=== PATIENT | male | born 1960 | race Caucasian/White ===

== ENCOUNTER → 2018-06-16 | Outpatient (CLI) | payer SELFPAY ==
[~2018-06-16] MED LIST: ASPIRIN ADULT L81 M2 PO; ATORVASTATIN CA40 M1 PO; MOTRIN800 MG PO; NKHM; PERCOCET 325 MG1 TA2 PO; PREDNISONE10 MG PO; TAMIFLU 75MG CA75 MG PO; VIBRAMYCIN100 MG PO; VITAMIN D50000 UNIT PO
[2018-06-16 12:05] LABS: IRON 111 ug/dL (65-175); TOTAL IRON BINDING CAPACITY 255 ug/dl (250-450)
== END | disposition home or self-care (01) ==
LOC: RESCLI 00:06
PROVIDERS: Student in an Organized Health Care Education/Training Program
DX: J44.9 Chronic obstructive pulmonary disease, unspecified (principal); E55.9 Vitamin D deficiency, unspecified; D64.9 Anemia, unspecified; R73.03 Prediabetes; Z76.89 Persons encountering health services in other specified circumstances; Z72.0 Tobacco use; Z71.6 Tobacco abuse counseling

== ENCOUNTER 2019-09-04 09:00 | Inpatient (IN) | payer SELFPAY ==
[~2019-09-04] VITALS: Ht 157.4 cm; Wt 56.2 kg
[2019-09-04 09:12] VITALS: BP 108/63
[2019-09-04 09:23] LABS: BASO # 0.1 10*3/uL (0.0-0.1); BASO % 1.3 % (0.0-1.0); EOS # 0.1 10*3/uL (0.0-0.4); EOS % 1.3 % (1.0-4.0); HEMATOCRIT 41.8 % (42.0-52.0); LYMPH # 1.1 10*3/uL (1.3-4.4); LYMPH % 22.1 % (27.0-41.0); MEAN CORPUSCULAR HGB 33.9 pg (27.0-31.0); MEAN CORPUSCULAR HGB CONC 33.3 g/dl (33.0-37.0); MEAN PLATELET VOLUME 8.8 fl (9.6-12.3); MONO # 0.4 10*3/uL (0.1-1.0); MONO % 8.6 % (3.0-9.0); NEUT # 3.2 10*3/uL (2.3-7.9); NEUT % 66.3 % (47.0-73.0); PLATELET COUNT AUTOMATED 182 10*3/uL (130-400); RED CELL DISTRI WIDTH 12.9 % (0-14.5); WHITE BLOOD COUNT 4.8 10*3/uL (4.8-10.8)
[2019-09-04 09:34] LABS: ACT PARTIAL THROMBO TIME 27.9 SECONDS (20.0-32.1)
[2019-09-04 10:07] LABS: ALBUMIN 3.5 gm/dl (3.1-4.5); ALKALINE PHOSPHATASE 92 U/L (45-117); BUN 13 mg/dl (7-24); CHLORIDE 109 mmol/L (98-107); POTASSIUM 4.5 mmol/L (3.5-5.1); SGOT/AST 42 IU/L (3-35); SGPT/ALT 33 U/L (12-78); SODIUM 139 mmol/L (136-145); TOTAL PROTEIN 6.5 gm/dL (6.4-8.2)
[2019-09-04 10:10] LABS: TROPONIN I < 0.015 ng/ml (<0.045)
--- NOTE | 2019-09-04 11:21 | NUR ---
faxed sbar to [facility]
--- NOTE | 2019-09-04 11:22 | NUR ---
REPORTED NURSE TO NURSE DANIELLE AQUINO
[2019-09-04 11:36] VITALS: BP 109/61
--- NOTE | 2019-09-04 11:40 | NUR ---
CCA 59, admitted to , under the services of SHARMAINE Palacios DO with a diagnosis of CHEST PAIN. Chief complaint is CHEST PAIN. Patient arrived via bed from ER. Monitor applied. Initial assessment completed. Vital signs taken and recorded. SHARMAINE PALACIOS DO notified of admission to the unit. Orders received. See assessment for past medical history, medications and allergies. Patient and/or family oriented to unit. [address] visitation policy reviewed. Clothing/patient valuable form completed. DANIELLE ERWIN
--- NOTE | 2019-09-04 11:51 | NUR ---
NO HOME MEDS PER PT.
--- NOTE | 2019-09-04 11:56 | NUR ---
'S OFFICE NOTIFIED OF CONSULT.
--- NOTE | 2019-09-04 12:00 | NUR ---
U NOTIFIED OF CONSULT.
--- NOTE | 2019-09-04 15:37 | NUR ---
PT RESTING, NO VOICED COMPLAINTS. RESPIRATIONS EASY, REGULAR. WILL MONITOR. CALL LIGHT WITHIN REACH.
[2019-09-04 16:00] VITALS: BP 112/62
--- NOTE | 2019-09-04 17:37 | NUR ---
PT REQUESTED IV ZOFRAN PER PRN ORDER FOR C/O NAUSEA/VOMITING. WILL MONITOR EFFECTIVENESS. CALL LIGHT WITHIN REACH. PT DENIES ANY CHEST PAIN.
--- NOTE | 2019-09-04 18:37 | NUR ---
ZOFRAN EFFECTIVE PER PT. WILL CONTINUE TO MONITOR.
[2019-09-04 20:00] VITALS: BP 109/62
--- NOTE | 2019-09-04 23:32 | NUR ---
NITROPASTE APPLIED TO LT SHOULDER PER ORDERS. PATIENT HAS NO COMPLAINTS AT THIS TIME. RESPS EASY AND REGULAR ON ROOM AIR, HR 60'S.
[2019-09-05] VITALS: BP 107/58
--- NOTE | 2019-09-05 03:14 | NUR ---
PT SLEEPING; NO S/S DISTRESS. EASY REGULAR RESPS ON ROOM AIR . CALL LIGHT IN REACH.
[2019-09-05 05:30] VITALS: BP 107/59
[2019-09-05 06:23] LABS: BASO # 0.1 10*3/uL (0.0-0.1); BASO % 0.9 % (0.0-1.0); EOS # 0.1 10*3/uL (0.0-0.4); EOS % 1.8 % (1.0-4.0); HEMATOCRIT 43.3 % (42.0-52.0); LYMPH # 1.4 10*3/uL (1.3-4.4); LYMPH % 24.2 % (27.0-41.0); MEAN CELL VOLUME 101.2 fl (80.0-94.0); MEAN CORPUSCULAR HGB 34.1 pg (27.0-31.0); MEAN CORPUSCULAR HGB CONC 33.7 g/dl (33.0-37.0); MEAN PLATELET VOLUME 9.5 fl (9.6-12.3); MONO # 0.4 10*3/uL (0.1-1.0); MONO % 7.9 % (3.0-9.0); NEUT # 3.6 10*3/uL (2.3-7.9); NEUT % 64.8 % (47.0-73.0); PLATELET COUNT AUTOMATED 200 10*3/uL (130-400); RED BLOOD COUNT 4.28 10*6/uL (4.50-5.90); WHITE BLOOD COUNT 5.6 10*3/uL (4.8-10.8)
[2019-09-05 06:57] LABS: ALBUMIN 3.4 gm/dl (3.1-4.5); ALKALINE PHOSPHATASE 57 U/L (45-117); BUN 12 mg/dl (7-24); CHLORIDE 109 mmol/L (98-107); CHOLESTEROL 159 mg/dL (<200); CREATININE 0.91 mg/dL (0.70-1.30); FREE T4 1.24 ng/dl (0.76-1.46); HDL CHOLESTEROL 48 mg/dl (40-60); LDL CHOLESTEROL 95 mg/dL (9-159); POTASSIUM 4.3 mmol/L (3.5-5.1); SGOT/AST 35 IU/L (3-35); SGPT/ALT 31 U/L (12-78); SODIUM 139 mmol/L (136-145); TOTAL PROTEIN 6.4 gm/dL (6.4-8.2); TRIGLYCERIDES 80 mg/dl (<150); VLDL CHOLESTEROL 16 mg/dL (6-40)
[2019-09-05 07:40] LABS: VITAMIN D, 25-HYDROXY 33.7 ng/mL (30-100)
[2019-09-05 08:00] VITALS: BP 98/54
--- NOTE | 2019-09-05 08:09 | NUR ---
JAYLEN IN TO SEE PATIENT REGARDING BHU CONSULT.
--- NOTE | 2019-09-05 08:49 | NUR ---
AUTHORIZATION OBTAINED AND FAXED FOR RECORDS FROM [facility].
--- NOTE | 2019-09-05 08:50 | NUR ---
PT MEDICATED WITH PO TYLENOL PER PRN ORDER FOR C/O HEADACHE. WILL MONITOR EFFECTIVENESS.
--- NOTE | 2019-09-05 09:50 | NUR ---
TYLENOL EFFECTIVE PER PT. WILL CONTINUE TO MONITOR.
[2019-09-05 12:00] VITALS: BP 100/62
[2019-09-05 16:00] VITALS: BP 98/58
--- NOTE | 2019-09-05 16:30 | NUR ---
PATIENT RESTING IN BED, WATCHING TV. NO VOICED COMPLAINTS. RESPIRATIONS EASY, REGULAR ON RA. WILL CONTINUE TO MONITOR. CALL LIGHT WITHIN REACH.
[2019-09-05 20:00] VITALS: BP 107/68
--- NOTE | 2019-09-05 21:06 | NUR ---
SCHEDULED MEDICATIONS GIVEN PER ORDER. PT DENIES ANY OTHER NEEDS AT THIS TIME. DENIES ANY S/S OF CHEST PAIN/PRESSURE. WILL MONITOR. CALL LIGHT LEFT IN REACH. SKIN NOT ASSESSED DUE TO PT WEARING JEANS. PT DOES NOT WANT TO REMOVE JEANS AT THIS TIME. PAJAMA PANTS OFFERED, BUT PT REFUSING.
--- NOTE | 2019-09-05 23:21 | NUR ---
NITRO PATCH APPLIED TO L POST SHOULDER. OLD PATCH REMOVED.
--- NOTE | 2019-09-05 23:26 | NUR ---
NOTIFIED OF PATIENT'S REQUEST FOR SOMETHING TO HELP HIM SLEEP. AWARE REMERON AND VISTARIL GIVEN EARLIER ORDERED AND INEFFECTIVE FOR SLEEP. DISCUSSED BP BEING 90S/50S THROUGHOUT THE DAY. NEW ORDER RECEIVED FOR PO RESTORIL X1 DOSE NOW.
--- NOTE | 2019-09-05 23:51 | NUR ---
PO RESTORIL ADMINISTERED PER ONE TIME ORDER FOR C/O INSOMNIA. WILL MONITOR EFFECTIVENESS. CALL LIGHT IN REACH.
[2019-09-06] VITALS: BP 102/62
--- NOTE | 2019-09-06 00:45 | NUR ---
EARLIER MEDICATION APPEARS EFFECTIVE. PT ASLEEP IN BED. NO S/S OF DISTRESS NOTED. WILL MONITOR. CALL LIGHT IN REACH.
--- NOTE | 2019-09-06 01:56 | NUR ---
PT ASLEEP IN BED. NO S/S OF DISTRESS NOTED. WILL MONITOR. CALL LIGHT IN REACH.
[2019-09-06 08:00] VITALS: BP 112/62
[2019-09-06 08:10] VITALS: BP 116/60
--- NOTE | 2019-09-06 08:20 | NUR ---
Shift chart check completed.
--- NOTE | 2019-09-06 09:38 | NUR ---
SENT TO CARDIAC TESTING
--- NOTE | 2019-09-06 09:40 | NUR ---
VISITOR/DAUGHTER HERE.
--- NOTE | 2019-09-06 10:25 | NUR ---
INFORMED CONSENT SIGNED FOR LEXISCAN STRESS TEST WITH DR. RUBIO. RESTING EKG SINUS BRADYCARDIA, HR 53, BP 118/60. PULSE OX 98% AND LUNGS SOUNDS CLEAR BILATERALLY BUT DEMINISHED. COMPLETED ONE MINUTE OF LEXISCAN PROTOCOL RECEIVING LEXISCAN 0.4MG OER 10 SECONDS. NO ARRHYTHMIAS NOTED AND NO NEW ST CHANGES. PT C/O ODD FEELING. LAST RECOVERY HR 87, BP 100/56. WAITING NUCLEAR SCANNING IN STABLE CONDITION.
--- NOTE | 2019-09-06 11:44 | NUR ---
RETURN FROM CARDIAC TESTING
--- NOTE | 2019-09-06 13:27 | NUR ---
Tube Wrapper in to talk to patient. Patient states lives at HOME with . There are FEW steps in the home. Physician: NONE AT THIS TIME Pharmacy: [facility], TAKES NO DAILY MEDS Home health services: NONE Patient's level of ADLs: INDEPENDENT Patient has working utilities: YES DME: NONE Follow-up physician's appointment after d/c: WILL GET ONE AND MAKE APPOINTMENT AFTER DISCHARGE Does patient want to access PORTAL?: NO Discharge plan PT LIVES AT HOME WITH AND IS INDEPENDENT IN HIS CARE. DENIES HE WILL HAVE ANY NEEDS ON DISCAHRGE. PLAN IS TO RETURN HOME WHEN MEDICALLY STABLE. WILL CONTINUE TO FOLLOW. STATES HE WILL HAVE A RIDE HOME.. RUTHY NUNEZ
[2019-09-06] MEDS ORDERED: MIRTAZAPINE15 M2 PO (13:43)
[2019-09-06] MEDS ORDERED: NICODERM T (13:43)
[2019-09-06] MEDS ORDERED: ATARAX,VISTARIL10 MG PO (13:43)
[2019-09-06] MEDS ORDERED: ASPIRIN ADULT L81 M2 PO (13:44)
[2019-09-06] MEDS ORDERED: ATORVASTATIN CA40 M1 PO (13:44)
--- NOTE | 2019-09-06 14:22 | NUR ---
Discharge instructions reviewed with patient. Patient receptive and verbalizes understanding. Follow-up care understood. Written instructions given to patient. iv removed, tele off. pt has no questions on discharge at this time. ASTON SANDERS
--- NOTE | 2019-09-06 14:27 | NUR ---
pt aware of cost of medications at outpatient pharmacy, pt is calling daughter for transportation home. will let staff know when she is on her way.
--- NOTE | 2019-09-06 14:29 | NUR ---
DISCHARGE, PT DECLINES WHEELCHAIR
== END 2019-09-06 14:29 | disposition home or self-care (01) | DRG 880 ==
LOC: ED 09:00 → EDHOLD 10:42 → 5E 10:42
PROVIDERS: Emergency Medicine; Registered Nurse; ADMIT Family Medicine
DX: F41.9 Anxiety disorder, unspecified (principal); F33.2 Major depressive disorder, recurrent severe without psychotic features; R74.0 Nonspecific elevation of levels of transaminase and lactic acid dehydrogenase [LDH]; R00.1 Bradycardia, unspecified; I25.10 Atherosclerotic heart disease of native coronary artery without angina pectoris; M94.0 Chondrocostal junction syndrome [Tietze]; J44.9 Chronic obstructive pulmonary disease, unspecified; F12.90 Cannabis use, unspecified, uncomplicated; Z87.891 Personal history of nicotine dependence; Z91.5 Personal history of self-harm; Z71.6 Tobacco abuse counseling; I25.2 Old myocardial infarction; Z82.49 Family history of ischemic heart disease and other diseases of the circulatory system; Z83.3 Family history of diabetes mellitus; Z79.82 Long term (current) use of aspirin; Z79.899 Other long term (current) drug therapy; Z98.61 Coronary angioplasty status

== ENCOUNTER 2019-09-09 07:58 | Emergency (ER) | payer SELFPAY ==
[~2019-09-09] VITALS: Ht 154.9 cm; Wt 56.7 kg
[~2019-09-09 07:58] MED LIST changes: +ATARAX,VISTARIL10 MG PO; +MIRTAZAPINE15 M2 PO; +NICODERM T
[2019-09-09] MEDS ORDERED: VALTREX1000 MG PO (08:34)
== END 2019-09-09 08:42 | disposition home or self-care (01) ==
LOC: ED 07:58
DX: B02.9 Zoster without complications (principal); I25.2 Old myocardial infarction; F17.200 Nicotine dependence, unspecified, uncomplicated

== ENCOUNTER 2020-01-24 11:07 | Inpatient (IN) | payer OTHER ==
[~2020-01-24] VITALS: Ht 170.2 cm; Wt 55.8 kg
[~2020-01-24 11:07] MED LIST changes: +VALTREX1000 MG PO
[2020-01-24 11:19] VITALS: BP 98/81
[2020-01-24 11:57] LABS: BASO % 0.9 % (0.0-1.0); EOS # 0.1 10*3/uL (0.0-0.4); EOS % 1.5 % (1.0-4.0); LYMPH # 1.6 10*3/uL (1.3-4.4); LYMPH % 35.1 % (27.0-41.0); MEAN CELL VOLUME 100.7 fl (80.0-94.0); MEAN CORPUSCULAR HGB 34.2 pg (27.0-31.0); MEAN CORPUSCULAR HGB CONC 33.9 g/dl (33.0-37.0); MEAN PLATELET VOLUME 8.5 fl (9.6-12.3); MONO # 0.4 10*3/uL (0.1-1.0); MONO % 8.8 % (3.0-9.0); NEUT # 2.5 10*3/uL (2.3-7.9); NEUT % 53.7 % (47.0-73.0); PLATELET COUNT AUTOMATED 188 10*3/uL (130-400); RED BLOOD COUNT 4.07 10*6/uL (4.50-5.90); WHITE BLOOD COUNT 4.7 10*3/uL (4.8-10.8)
[2020-01-24 12:08] LABS: ACT PARTIAL THROMBO TIME 28.4 SECONDS (20.0-32.1)
[2020-01-24 12:13] LABS: ALBUMIN 3.4 gm/dl (3.1-4.5); ALKALINE PHOSPHATASE 71 U/L (45-117); BUN 9 mg/dl (7-24); CHLORIDE 107 mmol/L (98-107); CREATININE 1.02 mg/dL (0.70-1.30); LIPASE 85 U/L (73-393); POTASSIUM 4.5 mmol/L (3.5-5.1); SGOT/AST 22 IU/L (3-35); SGPT/ALT 19 U/L (12-78); SODIUM 140 mmol/L (136-145); TOTAL PROTEIN 6.7 gm/dL (6.4-8.2)
[2020-01-24 12:15] LABS: TROPONIN I < 0.015 ng/ml (<0.045)
[2020-01-24 12:46] LABS: BILIRUBIN Negative (Negative); BLOOD Negative (Negative); CLARITY Clear (Clear); COLOR Yellow (Yellow); GLUCOSE Negative (Negative); KETONE Negative (Negative); LEUKO ESTERASE Negative (Negative); NITRITE Negative (Negative); PH 6.5 (4.5-8.0); UROBILINOGEN 0.2 E.U./dl (0.0-1.0)
[2020-01-24 13:00] LABS: EPITHELIAL CELLS 0-2
[2020-01-24 13:29] VITALS: BP 110/60
[2020-01-24 14:08] VITALS: BP 112/72
--- NOTE | 2020-01-24 14:09 | NUR ---
REDDENED AREAS NOTED TO BACK FROM HX OF SHINGLES.
[2020-01-24 14:57] LABS: CPK 136 U/L (39-308); LDH 181 U/L (87-241)
[2020-01-24 15:10] VITALS: BP 120/68
[2020-01-24 16:00] VITALS: BP 109/67
--- NOTE | 2020-01-24 16:00 | NUR ---
A 59, admitted to , under the services of JESUS Wayne DO with a diagnosis of PERSON UNDER INVESTIGATION FOR COVID, COPD EXACERBATION. Chief complaint is RUNNYNOSE/HEADACHE. Patient arrived via stretcher from ER. Monitor applied. Initial assessment completed. Vital signs taken and recorded. JESUS WAYNE DO notified of admission to the unit. Orders received. See assessment for past medical history, medications and allergies. Patient and/or family oriented to unit. [facility]. Clothing/patient valuable form completed. URSULA HAAS
--- NOTE | 2020-01-24 17:30 | NUR ---
SPOKE TO PATIENTS TO REVIEW MEDICATIONS, SHE VERSED HE WILL NOT TAKE ANY OF HIS MEDICATIONS, AND ANALI, ADVISED DR. DILLARD THAT I ATTEMPTED TO RECONCILE MEDICATIONS, REVIEWED WHAT STATED, SHE STATED JUST PUT IT DOWN FOR NO MEDS.
--- NOTE | 2020-01-24 18:02 | NUR ---
CALL PLACED TO DR. DILLARD ADVISED OF PATIENT HAVING SEVERE HEADACHE X 3 WEEKS, PATIENT HAD LARGE EMESIS OF UNDIGESTED FOOD.RDER RECEIVED FOR STAT CT, AND TORDOL, ALSO GIVE ZOFRAN ORDERED.
--- NOTE | 2020-01-24 18:08 | NUR ---
PATIENT GIVEN TORDOL AND ZOFRAN FOR HEADACHE AND NAUSEA.VOMITING.
--- NOTE | 2020-01-24 19:02 | NUR ---
PATIENT HAD GOOD EFFECT FROM ZOFRAN AND TORDOL, NO FURTHER HEADACHE OR NAUSEA, HEADED DOWN FOR HEAD CT.
[2020-01-24 20:00] VITALS: BP 103/63
--- NOTE | 2020-01-24 20:00 | NUR ---
LYING IN BED WITH EYE CLOSED. RESPONDS TO VERBAL STIMULI. VOMITED X2 NO C/O VOICED. ASSESSMENT COMPLETE SEE FLOWSHEET.ISO. MAINTAINED ALL NEEDS MET AT THIS TIME. TOOK PO MEDICATIONS WITHOUT DIFFICULTY. CALL LIGHT IN REACH.
[2020-01-25] VITALS: BP 132/64
[2020-01-25 06:13] LABS: BASO % 0.1 % (0.0-1.0); HEMATOCRIT 42.9 % (42.0-52.0); LYMPH % 12.2 % (27.0-41.0); MEAN CELL VOLUME 99.3 fl (80.0-94.0); MEAN CORPUSCULAR HGB 33.6 pg (27.0-31.0); MEAN CORPUSCULAR HGB CONC 33.8 g/dl (33.0-37.0); MEAN PLATELET VOLUME 8.9 fl (9.6-12.3); MONO # 0.5 10*3/uL (0.1-1.0); MONO % 6.3 % (3.0-9.0); NEUT # 6.9 10*3/uL (2.3-7.9); PLATELET COUNT AUTOMATED 211 10*3/uL (130-400); RED BLOOD COUNT 4.32 10*6/uL (4.50-5.90); RED CELL DISTRI WIDTH 11.8 % (0-14.5); WHITE BLOOD COUNT 8.5 10*3/uL (4.8-10.8)
[2020-01-25 06:31] LABS: ALBUMIN 3.3 gm/dl (3.1-4.5); BUN 16 mg/dl (7-24); CHLORIDE 110 mmol/L (98-107); CREATININE 0.95 mg/dL (0.70-1.30); POTASSIUM 4.6 mmol/L (3.5-5.1); SGOT/AST 20 IU/L (3-35); SGPT/ALT 16 U/L (12-78); SODIUM 141 mmol/L (136-145); TOTAL PROTEIN 6.4 gm/dL (6.4-8.2)
[2020-01-25 06:34] LABS: ALKALINE PHOSPHATASE 59 U/L (45-117); LDH 155 U/L (87-241)
--- NOTE | 2020-01-25 07:00 | NUR ---
ARRIVED ON SHIFT, REPORT RECEIEVED FROM OFFGOING NURSE, ASSUMED CARE OF PATIENT.
--- NOTE | 2020-01-25 07:45 | NUR ---
INTRODUCED SELF TO PATIENT BED IN LOW POSITION, WHEEL LOCKS ENGAGED, SIDE RAILS UP X 2 FOR TURNING AND REPOSITIONING, CALL LIGHT WITHIN REACH, WHITE BOARD UPDATED.
[2020-01-25 08:00] VITALS: BP 128/68; BP 90/63
--- NOTE | 2020-01-25 09:00 | NUR ---
Vascular Ultrasound Technician in to talk to patient. Patient states lives at home with . There are no steps in the home. Physician: none [facility]acy: [facility] Home health services: none Patient's level of ADLs: INDEPENDENT Patient has working utilities: all working DME: none Follow-up physician's appointment after d/c: will be made by hospitalist nurse director upon discharge Does patient want to access PORTAL?: no Discharge plan discussed with patient, he states he lives at home with , he is independent in adls and ambulation, works, drives, he will return home when discharged and denies any home needs. ANABELL ELIZONDO
[2020-01-25 12:00] VITALS: BP 102/61
[2020-01-25 16:00] VITALS: BP 107/61
[2020-01-25 20:00] VITALS: BP 104/64
--- NOTE | 2020-01-25 21:00 | NUR ---
ASKED IF IT WOULD BE OK TO GIVE THE PATIENT RESTORIL WITH A RESTING HEART RATE OF LOW 50'S/ HE STATED IT WOULD BE FINE.
--- NOTE | 2020-01-25 21:43 | NUR ---
PRN RESTORIL GIVEN FOR PT COMPLAINTS OF SLEEPLESSNESS. PATIENT STATES THAT HE DIDN'T GET ANY SLEEP LAST NIGHT OR THIS MORNING. CALL LIGHT WITHIN REACH, WILL MONITOR
--- NOTE | 2020-01-25 22:30 | NUR ---
PRN MEDICATION APPEARS EFFECTIVE, PT SLEEPING
[2020-01-26] VITALS: BP 94/54
--- NOTE | 2020-01-26 01:19 | NUR ---
24 HR chart check completed.
--- NOTE | 2020-01-26 02:49 | NUR ---
PATIENT SLEEPING,NO DISTRESS NOTED. BREATHING IS EASY AND REGULAR ON ROOM AIR. CALL LIGHT WITHIN REACH, WILL MONITOR
[2020-01-26 08:00] VITALS: BP 100/60
--- NOTE | 2020-01-26 08:23 | NUR ---
DR DENT CALLED WITH NEGATIVE COVID ISOLATION RESULT. OK TO DISCONTINUE ISOLATION
--- NOTE | 2020-01-26 09:00 | NUR ---
case management talks with patient, he states he will be returning home today and denies any home needs
[2020-01-26] MEDS ORDERED: PREDNISONE10 MG PO (09:27)
[2020-01-26] MEDS ORDERED: VENT7GM INH (09:27)
[2020-01-26] MEDS ORDERED: DOXYCYCLINE100 M3 PO (09:27)
--- NOTE | 2020-01-26 09:57 | NUR ---
The Discharge Plan/Instructions have been completed. Discharge instructions reviewed with patient/family. Patient receptive and verbalizes understanding. Follow-up care arranged. Written instructions given to patient/family.Hep Lock discontinued. Site asymptomatic. Pressure applied. Sterile dressing applied. PT AMBULATED OUT PER HIS REQUEST FRANCISCO J WEBBER
--- NOTE | 2020-01-26 13:15 | NUR ---
Clinicals faxed to [facility] per insurance request.
== END 2020-01-26 09:57 | disposition home or self-care (01) | DRG 190 ==
LOC: ED 11:07 → 4E 13:38 → EDHOLD 13:38 → 4E 13:57
PROVIDERS: Physician Assistant; Student in an Organized Health Care Education/Training Program; ADMIT Internal Medicine; ATTEND Internal Medicine
DX: J44.0 Chronic obstructive pulmonary disease with (acute) lower respiratory infection (principal); J18.9 Pneumonia, unspecified organism; E44.0 Moderate protein-calorie malnutrition; Z68.1 Body mass index [BMI] 19.9 or less, adult; J44.1 Chronic obstructive pulmonary disease with (acute) exacerbation; F32.9 Major depressive disorder, single episode, unspecified; F41.9 Anxiety disorder, unspecified; Z20.828 Contact with and (suspected) exposure to other viral communicable diseases; D53.9 Nutritional anemia, unspecified; D72.819 Decreased white blood cell count, unspecified; E55.9 Vitamin D deficiency, unspecified; Z71.6 Tobacco abuse counseling; Z82.49 Family history of ischemic heart disease and other diseases of the circulatory system

== ENCOUNTER 2020-11-15 09:59 | Emergency (ER) | payer BC ==
[~2020-11-15] VITALS: Ht 157.4 cm; Wt 66.2 kg
[~2020-11-15 09:59] MED LIST changes: +DOXYCYCLINE100 M3 PO; +VENT7GM INH
[2020-11-15 10:17] LABS: BASO # 0.1 10*3/uL (0.0-0.1); EOS # 0.1 10*3/uL (0.0-0.4); HEMATOCRIT 39.1 % (42.0-52.0); LYMPH # 1.3 10*3/uL (1.3-4.4); LYMPH % 27.1 % (27.0-41.0); MEAN CELL VOLUME 98.7 fl (80.0-94.0); MEAN CORPUSCULAR HGB 33.3 pg (27.0-31.0); MEAN CORPUSCULAR HGB CONC 33.8 g/dl (33.0-37.0); MEAN PLATELET VOLUME 8.7 fl (9.6-12.3); MONO # 0.5 10*3/uL (0.1-1.0); MONO % 9.7 % (3.0-9.0); PLATELET COUNT AUTOMATED 190 10*3/uL (130-400); RED BLOOD COUNT 3.96 10*6/uL (4.50-5.90); RED CELL DISTRI WIDTH 12.5 % (0-14.5); WHITE BLOOD COUNT 4.9 10*3/uL (4.8-10.8)
[2020-11-15 10:40] LABS: LIPASE 93 U/L (73-393)
[2020-11-15 10:42] LABS: ALBUMIN 3.5 gm/dl (3.1-4.5); ALKALINE PHOSPHATASE 79 U/L (45-117); BUN 12 mg/dl (7-24); CHLORIDE 110 mmol/L (98-107); POTASSIUM 4.8 mmol/L (3.5-5.1); SGOT/AST 26 IU/L (3-35); SGPT/ALT 24 U/L (12-78); SODIUM 140 mmol/L (136-145); TOTAL PROTEIN 6.4 gm/dL (6.4-8.2)
[2020-11-15 10:43] LABS: TROPONIN I < 0.015 ng/ml (<0.045)
== END 2020-11-15 15:09 | disposition left against medical advice (07) ==
LOC: ED 09:59
PROVIDERS: Emergency Medicine
DX: R07.9 Chest pain, unspecified (principal)

== ENCOUNTER 2021-10-06 11:30 | Emergency (ER) | payer SELFPAY ==
[~2021-10-06] VITALS: Wt 59.0 kg
[2021-10-06 12:01] LABS: BASO # 0.1 10*3/uL (0.0-0.1); BASO % 0.4 % (0.0-1.0); EOS % 0.2 % (1.0-4.0); HEMATOCRIT 44.1 % (42.0-52.0); LYMPH # 1.1 10*3/uL (1.3-4.4); LYMPH % 7.7 % (27.0-41.0); MEAN CELL VOLUME 99.5 fl (80.0-94.0); MEAN CORPUSCULAR HGB 33.9 pg (27.0-31.0); MONO # 0.7 10*3/uL (0.1-1.0); MONO % 4.9 % (3.0-9.0); NEUT # 12.4 10*3/uL (2.3-7.9); NEUT % 86.3 % (47.0-73.0); PLATELET COUNT AUTOMATED 191 10*3/uL (130-400); RED BLOOD COUNT 4.43 10*6/uL (4.50-5.90); RED CELL DISTRI WIDTH 12.4 % (0-14.5); WHITE BLOOD COUNT 14.4 10*3/uL (4.8-10.8)
[2021-10-06 12:16] LABS: ACT PARTIAL THROMBO TIME 27.4 SECONDS (20.0-32.1); INTERNATIONAL NORM RATIO 1.1 (2.0-3.5)
[2021-10-06 12:17] LABS: ALKALINE PHOSPHATASE 75 U/L (45-117); BUN 13 mg/dl (7-24); CHLORIDE 107 mmol/L (98-107); CREATININE 1.11 mg/dL (0.70-1.30); POTASSIUM 3.9 mmol/L (3.5-5.1); SGOT/AST 25 IU/L (3-35); SGPT/ALT 19 U/L (12-78); SODIUM 138 mmol/L (136-145); TOTAL PROTEIN 6.9 gm/dL (6.4-8.2)
[2021-10-06] MEDS ORDERED: PROVENTIL HFA6.7 GM INH ×2 (13:19)
[2021-10-06] MEDS ORDERED: AVPAK AZITHROM250 MG PO ×2 (13:19)
[2021-10-06] MEDS ORDERED: LEADER ASPIRIN325 MG PO ×2 (13:19)
[2021-10-06] MEDS ORDERED: AMOX-CLAV 875-1 EACH PO ×2 (13:19)
== END 2021-10-06 13:36 | disposition home or self-care (01) ==
LOC: ED 11:30
PROVIDERS: Emergency Medicine
DX: J18.9 Pneumonia, unspecified organism (principal); J44.9 Chronic obstructive pulmonary disease, unspecified; F17.210 Nicotine dependence, cigarettes, uncomplicated

== ENCOUNTER 2021-10-07 12:33 | Inpatient (IN) | payer SELFPAY ==
[~2021-10-07] VITALS: Ht 167.6 cm; Wt 55.8 kg
[~2021-10-07 12:33] MED LIST changes: +AMOX-CLAV 875-1 EACH PO; +AVPAK AZITHROM250 MG PO; +LEADER ASPIRIN325 MG PO; +PROVENTIL HFA6.7 GM INH
[2021-10-07 12:42] VITALS: BP 113/82
[2021-10-07 13:20] LABS: BASO % 0.4 % (0.0-1.0); EOS % 0.1 % (1.0-4.0); HEMATOCRIT 43.2 % (42.0-52.0); LYMPH # 0.7 10*3/uL (1.3-4.4); MEAN CELL VOLUME 100.9 fl (80.0-94.0); MEAN CORPUSCULAR HGB 34.1 pg (27.0-31.0); MEAN CORPUSCULAR HGB CONC 33.8 g/dl (33.0-37.0); MEAN PLATELET VOLUME 9.4 fl (9.6-12.3); MONO # 0.4 10*3/uL (0.1-1.0); MONO % 6.1 % (3.0-9.0); NEUT # 5.7 10*3/uL (2.3-7.9); PLATELET COUNT AUTOMATED 190 10*3/uL (130-400); RED BLOOD COUNT 4.28 10*6/uL (4.50-5.90); RED CELL DISTRI WIDTH 12.5 % (0-14.5); WHITE BLOOD COUNT 6.9 10*3/uL (4.8-10.8)
[2021-10-07 13:36] LABS: ACT PARTIAL THROMBO TIME 27.3 SECONDS (20.0-32.1)
[2021-10-07 13:48] LABS: ALKALINE PHOSPHATASE 76 U/L (45-117); BUN 18 mg/dl (7-24); CHLORIDE 105 mmol/L (98-107); CREATININE 1.09 mg/dL (0.70-1.30); POTASSIUM 3.9 mmol/L (3.5-5.1); SGOT/AST 24 IU/L (3-35); SGPT/ALT 19 U/L (12-78); SODIUM 136 mmol/L (136-145); TOTAL PROTEIN 7.2 gm/dL (6.4-8.2)
[2021-10-07 14:55] VITALS: BP 121/72
[2021-10-07 15:05] VITALS: BP 97/58
[2021-10-07 20:00] VITALS: BP 86/56
[2021-10-07 22:38] LABS: BILIRUBIN Negative (Negative); BLOOD Trace-Lysed (Negative); CLARITY Clear (Clear); COLOR Yellow (Yellow); GLUCOSE Negative (Negative); KETONE 1+ (Negative); LEUKO ESTERASE Negative (Negative); NITRITE Negative (Negative); SPECIFIC GRAVITY >= 1.030 (1.001-1.030)
[2021-10-08] VITALS: BP 96/63
[2021-10-08 05:05] LABS: BUN 13 mg/dl (7-24); CHLORIDE 111 mmol/L (98-107); CHOLESTEROL 136 mg/dL (<200); POTASSIUM 3.6 mmol/L (3.5-5.1); SGOT/AST 23 IU/L (3-35); SGPT/ALT 16 U/L (12-78); SODIUM 139 mmol/L (136-145); TOTAL PROTEIN 6.1 gm/dL (6.4-8.2)
[2021-10-08 05:06] LABS: ALKALINE PHOSPHATASE 62 U/L (45-117)
[2021-10-08 05:12] LABS: FREE T4 1.53 ng/dl (0.76-1.46); LDL CHOLESTEROL 79 mg/dL (9-159); TRIGLYCERIDES 71 mg/dl (<150)
[2021-10-08 06:16] LABS: BASO % 0.7 % (0.0-1.0); EOS # 0.1 10*3/uL (0.0-0.4); HEMATOCRIT 40.1 % (42.0-52.0); LYMPH % 15.9 % (27.0-41.0); MEAN CELL VOLUME 100.8 fl (80.0-94.0); MEAN CORPUSCULAR HGB 34.2 pg (27.0-31.0); MEAN CORPUSCULAR HGB CONC 33.9 g/dl (33.0-37.0); MONO # 0.4 10*3/uL (0.1-1.0); MONO % 7.4 % (3.0-9.0); NEUT # 4.4 10*3/uL (2.3-7.9); NEUT % 73.8 % (47.0-73.0); PLATELET COUNT AUTOMATED 161 10*3/uL (130-400); RED BLOOD COUNT 3.98 10*6/uL (4.50-5.90); RED CELL DISTRI WIDTH 12.3 % (0-14.5)
[2021-10-08 08:00] VITALS: BP 90/51
[2021-10-08 10:03] LABS: VITAMIN D, 25-HYDROXY 45.1 ng/mL (30-100)
[2021-10-08 12:00] VITALS: BP 92/59
[2021-10-08 16:00] VITALS: BP 81/53
[2021-10-08 16:30] VITALS: BP 90/60
[2021-10-08 20:00] VITALS: BP 100/58
[2021-10-09] VITALS: BP 89/47
[2021-10-09 06:14] LABS: BUN 12 mg/dl (7-24); CHLORIDE 112 mmol/L (98-107); POTASSIUM 4.3 mmol/L (3.5-5.1); SODIUM 144 mmol/L (136-145)
[2021-10-09 06:40] LABS: BASO % 0.6 % (0.0-1.0); EOS # 0.1 10*3/uL (0.0-0.4); EOS % 2.8 % (1.0-4.0); HEMATOCRIT 36.9 % (42.0-52.0); LYMPH % 19.8 % (27.0-41.0); MEAN CELL VOLUME 97.9 fl (80.0-94.0); MEAN CORPUSCULAR HGB 33.7 pg (27.0-31.0); MEAN CORPUSCULAR HGB CONC 34.4 g/dl (33.0-37.0); MEAN PLATELET VOLUME 9.5 fl (9.6-12.3); MONO # 0.4 10*3/uL (0.1-1.0); MONO % 8.6 % (3.0-9.0); NEUT # 3.5 10*3/uL (2.3-7.9); PLATELET COUNT AUTOMATED 180 10*3/uL (130-400); RED BLOOD COUNT 3.77 10*6/uL (4.50-5.90); WHITE BLOOD COUNT 5.1 10*3/uL (4.8-10.8)
[2021-10-09 08:00] VITALS: BP 110/55
[2021-10-09 12:00] VITALS: BP 113/60
[2021-10-09 16:00] VITALS: BP 87/59
[2021-10-09 20:00] VITALS: BP 110/58
[2021-10-10] VITALS: BP 102/49
[2021-10-10 06:26] LABS: BASO % 0.8 % (0.0-1.0); EOS # 0.2 10*3/uL (0.0-0.4); EOS % 3.8 % (1.0-4.0); LYMPH # 1.1 10*3/uL (1.3-4.4); LYMPH % 23.8 % (27.0-41.0); MEAN CELL VOLUME 98.6 fl (80.0-94.0); MEAN CORPUSCULAR HGB CONC 34.4 g/dl (33.0-37.0); MEAN PLATELET VOLUME 9.6 fl (9.6-12.3); MONO # 0.4 10*3/uL (0.1-1.0); MONO % 8.8 % (3.0-9.0); NEUT % 62.4 % (47.0-73.0); PLATELET COUNT AUTOMATED 190 10*3/uL (130-400); RED BLOOD COUNT 3.65 10*6/uL (4.50-5.90); RED CELL DISTRI WIDTH 12.2 % (0-14.5); WHITE BLOOD COUNT 4.8 10*3/uL (4.8-10.8)
[2021-10-10 08:00] VITALS: BP 128/72
[2021-10-10] MEDS ORDERED: PHARMASSURE V500 MCG PO ×2 (11:01→11:02)
[2021-10-10] MEDS ORDERED: OMNICEF300 MG PO (11:01)
[2021-10-10] MEDS ORDERED: ZITHROMAX500 MG PO (11:01)
[2021-10-10] MEDS ORDERED: TAMSULOSIN HCL0.4 MG PO ×2 (11:01→11:02)
[2021-10-10] MEDS ORDERED: GOOD SENSE ASP325 MG PO (11:01)
[2021-10-10] MEDS ORDERED: PANTOPRAZOLE SO20 MG PO ×2 (11:01→11:02)
[2021-10-10] MEDS ORDERED: ATORVASTATIN CA40 M1 PO ×2 (11:01→11:02)
[2021-10-10 12:00] VITALS: BP 130/70
== END 2021-10-10 12:52 | disposition home or self-care (01) | DRG 178 ==
LOC: ED 12:33 → EDHOLD 14:01 → 4E 14:01
PROVIDERS: Emergency Medicine; Registered Nurse; ADMIT Family Medicine; ATTEND Family Medicine
DX: J15.6 Pneumonia due to other Gram-negative bacteria (principal); J44.1 Chronic obstructive pulmonary disease with (acute) exacerbation; R78.81 Bacteremia; J44.0 Chronic obstructive pulmonary disease with (acute) lower respiratory infection; F12.90 Cannabis use, unspecified, uncomplicated; F32.9 Major depressive disorder, single episode, unspecified; I25.10 Atherosclerotic heart disease of native coronary artery without angina pectoris; F41.9 Anxiety disorder, unspecified; D50.9 Iron deficiency anemia, unspecified; I25.2 Old myocardial infarction; Z82.49 Family history of ischemic heart disease and other diseases of the circulatory system; Z83.3 Family history of diabetes mellitus; Z79.899 Other long term (current) drug therapy

== ENCOUNTER 2021-10-18 18:09 | Emergency (ER) | payer SELFPAY ==
[~2021-10-18] VITALS: Ht 167.6 cm; Wt 56.7 kg
[~2021-10-18 18:09] MED LIST changes: +GOOD SENSE ASP325 MG PO; +OMNICEF300 MG PO; +PANTOPRAZOLE SO20 MG PO; +PHARMASSURE V500 MCG PO; +TAMSULOSIN HCL0.4 MG PO; +ZITHROMAX500 MG PO
[2021-10-18] MEDS ORDERED: PREDNISONE20 M1 PO (20:10)
[2021-10-18] MEDS ORDERED: CEPHALEXIN500 M1 PO (20:10)
== END 2021-10-18 20:19 | disposition home or self-care (01) ==
LOC: ED 18:09
DX: R21 Rash and other nonspecific skin eruption (principal); F17.210 Nicotine dependence, cigarettes, uncomplicated; F12.90 Cannabis use, unspecified, uncomplicated; Z98.890 Other specified postprocedural states; Z79.899 Other long term (current) drug therapy; Z79.82 Long term (current) use of aspirin

== ENCOUNTER 2022-06-02 21:24 | Emergency (ER) | payer OTHER ==
[~2022-06-02] VITALS: Ht 172.7 cm; Wt 59.0 kg
[~2022-06-02 21:24] MED LIST changes: +CEPHALEXIN500 M1 PO; +PREDNISONE20 M1 PO
[2022-06-03 00:47] LABS: BASO % 0.6 % (0.0-1.0); EOS # 0.1 10*3/uL (0.0-0.4); EOS % 1.1 % (1.0-4.0); HEMATOCRIT 40.3 % (42.0-52.0); LYMPH % 14.2 % (27.0-41.0); MEAN CELL VOLUME 101.8 fl (80.0-94.0); MEAN CORPUSCULAR HGB 34.6 pg (27.0-31.0); MEAN PLATELET VOLUME 9.1 fl (9.6-12.3); MONO # 0.5 10*3/uL (0.1-1.0); MONO % 6.4 % (3.0-9.0); NEUT # 5.5 10*3/uL (2.3-7.9); NEUT % 77.4 % (47.0-73.0); PLATELET COUNT AUTOMATED 200 10*3/uL (130-400); RED BLOOD COUNT 3.96 10*6/uL (4.50-5.90); RED CELL DISTRI WIDTH 12.2 % (0-14.5)
[2022-06-03 01:03] LABS: ALKALINE PHOSPHATASE 106 U/L (46-116); BUN 10 mg/dl (9-23); CHLORIDE 110 mmol/L (98-107); POTASSIUM 4.7 mmol/L (3.4-5.1); SGPT/ALT 16 U/L (10-49); TOTAL PROTEIN 6.4 gm/dL (6.0-8.0)
== END 2022-06-03 03:57 | disposition home or self-care (01) ==
LOC: ED 21:24
PROVIDERS: Emergency Medicine
DX: R07.89 Other chest pain (principal); M25.512 Pain in left shoulder; Z98.890 Other specified postprocedural states; F17.210 Nicotine dependence, cigarettes, uncomplicated; F12.90 Cannabis use, unspecified, uncomplicated; V89.2XXA Person injured in unspecified motor-vehicle accident, traffic, initial encounter; W22.11XA Striking against or struck by driver side automobile airbag, initial encounter; Y93.89 Activity, other specified; Y92.410 Unspecified street and highway as the place of occurrence of the external cause; Y99.8 Other external cause status

== ENCOUNTER 2022-11-03 08:45 | Emergency (ER) | payer SELFPAY ==
[~2022-11-03] VITALS: Ht 172.7 cm; Wt 59.0 kg
[2022-11-03 09:43] LABS: BASO # 0.1 10*3/uL (0.0-0.1); BASO % 0.6 % (0.0-1.0); EOS # 0.1 10*3/uL (0.0-0.4); EOS % 0.9 % (1.0-4.0); HEMATOCRIT 42.8 % (42.0-52.0); LYMPH % 11.6 % (27.0-41.0); MEAN CELL VOLUME 99.1 fl (80.0-94.0); MEAN CORPUSCULAR HGB 34.5 pg (27.0-31.0); MEAN CORPUSCULAR HGB CONC 34.8 g/dl (33.0-37.0); MONO # 0.6 10*3/uL (0.1-1.0); MONO % 6.8 % (3.0-9.0); NEUT # 6.8 10*3/uL (2.3-7.9); NEUT % 79.7 % (47.0-73.0); PLATELET COUNT AUTOMATED 200 10*3/uL (130-400); RED BLOOD COUNT 4.32 10*6/uL (4.50-5.90); RED CELL DISTRI WIDTH 12.1 % (0-14.5); WHITE BLOOD COUNT 8.5 10*3/uL (4.8-10.8)
[2022-11-03 10:06] LABS: ALKALINE PHOSPHATASE 76 U/L (46-116); BUN 17 mg/dl (9-23); CHLORIDE 105 mmol/L (98-107); POTASSIUM 4.8 mmol/L (3.4-5.1); SGPT/ALT 10 U/L (10-49)
[2022-11-03] MEDS ORDERED: DECADRON4 MG PO (11:16)
== END 2022-11-03 11:22 | disposition home or self-care (01) ==
LOC: ED 08:45
PROVIDERS: Emergency Medicine
DX: U07.1 COVID-19 (principal); I25.2 Old myocardial infarction; J44.9 Chronic obstructive pulmonary disease, unspecified; Z98.890 Other specified postprocedural states; Z95.5 Presence of coronary angioplasty implant and graft; F12.90 Cannabis use, unspecified, uncomplicated; F17.210 Nicotine dependence, cigarettes, uncomplicated

== ENCOUNTER 2023-09-29 12:17 | Emergency (ER) | payer OTHER ==
[~2023-09-29] VITALS: Ht 175.2 cm; Wt 59.0 kg
[~2023-09-29 12:17] MED LIST changes: +DECADRON4 MG PO
[2023-09-29] MEDS ORDERED: methylPREDNISolone sod succ 125 MG VIAL IV ONE (16:30)
[2023-09-29] MEDS ORDERED: Ondansetron Hydrochloride 4 MG/2 ML VIAL IV ONE (16:30)
[2023-09-29] MEDS ORDERED: SODIUM CHLORIDE 0.9% 1,000 ML IV ONE (16:30)
[2023-09-29] MEDS ORDERED: diphenhydrAMINE hydrochloride 50 MG/ML VIAL IV ONE (16:30)
[2023-09-29 16:43] LABS: EOS # 0.1 10*3/uL (0.0-0.4); EOS % 1.5 % (1.0-4.0); HEMATOCRIT 40.4 % (42.0-52.0); LYMPH # 1.4 10*3/uL (1.3-4.4); LYMPH % 34.4 % (27.0-41.0); MEAN CORPUSCULAR HGB CONC 33.7 g/dl (33.0-37.0); MEAN PLATELET VOLUME 8.6 fl (9.6-12.3); MONO # 0.4 10*3/uL (0.1-1.0); MONO % 9.3 % (3.0-9.0); NEUT # 2.2 10*3/uL (2.3-7.9); NEUT % 53.6 % (47.0-73.0); PLATELET COUNT AUTOMATED 206 10*3/uL (130-400); RED CELL DISTRI WIDTH 12.3 % (0-14.5); WHITE BLOOD COUNT 4.1 10*3/uL (4.8-10.8)
[2023-09-29 17:11] LABS: ALKALINE PHOSPHATASE 85 U/L (46-116); BUN 6 mg/dl (9-23); CHLORIDE 108 mmol/L (98-107); POTASSIUM 4.3 mmol/L (3.4-5.1); SGPT/ALT 17 U/L (5-49); TOTAL PROTEIN 6.6 gm/dL (6.0-8.0)
== END 2023-09-29 18:20 | disposition home or self-care (01) ==
LOC: ED 12:17
PROVIDERS: Internal Medicine
DX: R51.9 Headache, unspecified (principal); J44.9 Chronic obstructive pulmonary disease, unspecified; I25.10 Atherosclerotic heart disease of native coronary artery without angina pectoris; F12.90 Cannabis use, unspecified, uncomplicated; F17.210 Nicotine dependence, cigarettes, uncomplicated; Z79.899 Other long term (current) drug therapy; Z95.5 Presence of coronary angioplasty implant and graft; Z98.890 Other specified postprocedural states

== ENCOUNTER 2024-04-19 09:28 | Emergency (ER) | payer OTHER ==
[~2024-04-19] VITALS: Ht 157.4 cm; Wt 62.4 kg
[2024-04-19] MEDS ORDERED: AMOX-CLAV 875-1 EACH PO (09:49)
[2024-04-19] MEDS ORDERED: FLUOXETINE HYDR20 M1 PO (09:49)
[2024-04-19] MEDS ORDERED: albuterol sulfate HF (09:50)
[2024-04-19] MEDS ORDERED: PREDNISONE20 M1 PO (09:50)
[2024-04-19] MEDS ORDERED: SODIUM CHLORIDE 0.9% 1,000 ML IV ONE (10:00)
[2024-04-19 10:28] LABS: BASO % 0.1 % (0.0-1.0); EOS % 0.1 % (1.0-4.0); MEAN CELL VOLUME 98.9 fl (80.0-94.0); MEAN CORPUSCULAR HGB 33.6 pg (27.0-31.0); MEAN PLATELET VOLUME 9.2 fl (9.6-12.3); MONO # 0.6 10*3/uL (0.1-1.0); MONO % 7.8 % (3.0-9.0); NEUT % 64.8 % (47.0-73.0); PLATELET COUNT AUTOMATED 226 10*3/uL (130-400); RED BLOOD COUNT 4.55 10*6/uL (4.50-5.90); RED CELL DISTRI WIDTH 11.9 % (0-14.5); WHITE BLOOD COUNT 7.7 10*3/uL (4.8-10.8)
[2024-04-19 10:38] LABS: ACT PARTIAL THROMBO TIME 22.8 SECONDS (20.0-32.1)
[2024-04-19 10:51] LABS: ALKALINE PHOSPHATASE 77 U/L (46-116); BUN 15 mg/dl (9-23); CHLORIDE 103 mmol/L (98-107); POTASSIUM 4.5 mmol/L (3.4-5.1); SGPT/ALT 20 U/L (5-49)
[2024-04-19 11:12] LABS: BILIRUBIN Negative (Negative); BLOOD Negative (Negative); CLARITY Clear (Clear); COLOR Dark Yellow (Yellow); GLUCOSE Negative (Negative); KETONE Trace (Negative); LEUKO ESTERASE Negative (Negative); NITRITE Negative (Negative); SPECIFIC GRAVITY >= 1.030 (1.001-1.030)
[2024-04-19] MEDS ORDERED: Ondansetron Hydrochloride 4 MG/2 ML VIAL IV ONE (11:15)
[2024-04-19] MEDS ORDERED: Ketorolac Tromethamine 15 MG/ML VIAL IV ONE (11:15)
[2024-04-19] MEDS ORDERED: diphenhydrAMINE hydrochloride 50 MG/ML VIAL IV ONE (11:15)
[2024-04-19 11:48] LABS: MUCOUS 1+; RBC 0-2 rbc/hpf (0-2)
== END 2024-04-19 12:52 | disposition home or self-care (01) ==
LOC: ED 09:28
PROVIDERS: Internal Medicine
DX: R51.9 Headache, unspecified (principal); J44.9 Chronic obstructive pulmonary disease, unspecified; I25.10 Atherosclerotic heart disease of native coronary artery without angina pectoris; R53.1 Weakness; I25.2 Old myocardial infarction; R10.2 Pelvic and perineal pain; F12.90 Cannabis use, unspecified, uncomplicated; F17.210 Nicotine dependence, cigarettes, uncomplicated; Z95.5 Presence of coronary angioplasty implant and graft; Z98.890 Other specified postprocedural states

== ENCOUNTER 2024-08-10 20:11 | Emergency (ER) | payer OTHER ==
[~2024-08-10] VITALS: Ht 172.7 cm; Wt 74.8 kg
[~2024-08-10 20:11] MED LIST changes: +FLUOXETINE HYDR20 M1 PO; +albuterol sulfate HF
[2024-08-10] MEDS ORDERED: methylPREDNISolone sod succ 125 MG VIAL IV ONE (20:25)
[2024-08-10 20:30] LABS: BASO % 0.5 % (0.0-1.0); EOS # 0.1 10*3/uL (0.0-0.4); EOS % 1.2 % (1.0-4.0); HEMATOCRIT 41.5 % (42.0-52.0); MEAN CELL VOLUME 102.7 fl (80.0-94.0); MEAN CORPUSCULAR HGB 34.2 pg (27.0-31.0); MEAN CORPUSCULAR HGB CONC 33.3 g/dl (33.0-37.0); MEAN PLATELET VOLUME 8.6 fl (9.6-12.3); MONO # 0.5 10*3/uL (0.1-1.0); MONO % 6.1 % (3.0-9.0); NEUT # 5.9 10*3/uL (2.3-7.9); NEUT % 72.1 % (47.0-73.0); PLATELET COUNT AUTOMATED 189 10*3/uL (130-400); RED BLOOD COUNT 4.04 10*6/uL (4.50-5.90); RED CELL DISTRI WIDTH 11.9 % (0-14.5); WHITE BLOOD COUNT 8.2 10*3/uL (4.8-10.8)
[2024-08-10 20:52] LABS: ALKALINE PHOSPHATASE 88 U/L (46-116); BUN 11 mg/dl (9-23); CHLORIDE 108 mmol/L (98-107); POTASSIUM 4.2 mmol/L (3.4-5.1); SGPT/ALT 17 U/L (5-49); TOTAL PROTEIN 6.9 gm/dL (6.0-8.0)
[2024-08-10] MEDS ORDERED: PREDNISONE20 M1 PO (23:18)
== END 2024-08-10 23:22 | disposition home or self-care (01) ==
LOC: ED 20:11
PROVIDERS: Internal Medicine
DX: J68.3 Other acute and subacute respiratory conditions due to chemicals, gases, fumes and vapors (principal); D53.9 Nutritional anemia, unspecified; F17.200 Nicotine dependence, unspecified, uncomplicated; Z79.899 Other long term (current) drug therapy; Z98.890 Other specified postprocedural states